=== PATIENT | female | born 1985 | race Hispanic/Latino ===

== ENCOUNTER 2018-08-17 13:48 | Emergency (ER) | payer MEDICAID, OTHER ==
[2018-08-17 13:59] VITALS: BP 146/85
[2018-08-17 14:25] LABS: Bacteria,Urine 1+ /HPF (Negative); Bilirubin,Urine NEG (Negative); Blood,Urine NEG (Negative); Color,Urine Amber (Yellow); Mucus,Urine 3+ /HPF; Urobilinogen,Urine < 2.0 mg/dL (<2.0)
[2018-08-17 14:29] LABS: HCG Qualitative,Urine Positive (Negative)
[2018-08-17] MEDS ORDERED: REGLAN IV ONE (14:31)
[2018-08-17] MEDS ORDERED: NACL 0.9% 1000 ML 1,000 ML IV ONE (14:31)
[2018-08-17 14:39] LABS: Basophils # (Auto) 0.1 K/mm3 (0.0-0.1); Basophils % (Auto) 0.8 % (0.0-1.8); Eosinophils % (Auto) 0.3 % (0.0-4.3); Hematocrit 45.6 % (30.3-42.9); Hemoglobin 15.5 gm/dl (10.1-14.3); Lymphocytes # (Auto) 2.4 K/mm3 (1.2-5.4); Lymphocytes % (Auto) 22.3 % (13.4-35.0); Mean Corpuscular HGB Conc 34 % (30-34); Mean Corpuscular Volume 92 fl (79-97); Monocytes # (Auto) 0.8 K/mm3 (0.0-0.8); Monocytes % (Auto) 7.4 % (0.0-7.3); Platelet Count 271 K/mm3 (140-440); Red Blood Count 4.98 M/mm3 (3.65-5.03); Red Cell Distribution Width 12.8 % (13.2-15.2)
--- NOTE | 2018-08-17 15:04 | Emergency Department Report ---
ED HPI - General Chief complaint: Abdominal Pain Stated complaint: PREG/CRAMPS/SPOTTING Time Seen by Provider: 08/17/18 14:18 Source: patient Mode of arrival: Ambulatory Limitations: No Limitations - History of Present Illness Initial comments: This is a 32-year-old female nontoxic, well nourished in appearance, no acute signs of distress presents to the ED with c/o of vaginal bleeding, nausea vomiting, and pelvic pain x2 days. Patient stated yesterday she noticed some spotting this morning x3 occasions. Patient stated she is but is not certain of how long. Patient denies having an OBGYN follow-up. Patient denies any abdominal pain. Patient denies any vaginal discharge or foul odor. Patient denies any chest pain, shortness of breathe, fever, chills, headache, stiff neck, numbness, tingling. Patient denies any urinary symptoms. Patient stated allergies to PCN with no significant PMH. MD Complaint: vaginal bleeding, other (pelvic pain) -: days(s) Location: pelvis Radiation: none Severity: mild Severity scale (0 -10): 3 Quality: cramping, aching Consistency: constant Improves with: none Worsens with: none Associated symptoms: nausea/vomiting, vaginal bleeding. denies: vaginal discharge, abdominal pain, dysuria, headache, vision changes, malaise, dysparuenia, rash, seizure, shortness of breath, syncope, weakness Vaginal bleeding: light :: Yes Pre- care: none - Related Data Previous Rx's Medication Instructions Recorded Last Taken Type Metoclopramide [Reglan] 10 mg PO Q8H PRN #20 tab 08/17/18 Unknown Rx 21/Iron Fu/Folic Acid 1 each PO DAILY #30 tablet 08/17/18 Unknown Rx [ Complete Caplet] RX: metroNIDAZOLE 0.75%(NF) 1 applicatio TP DAILY 5 Days tube 08/17/18 Unknown Rx [Metrogel 0.75% TOPICAL] Allergies Allergy/AdvReac Type Severity Reaction Status Date / Time Penicillins Allergy Anaphylaxis Verified 08/17/18 13:56 ED Review of Systems ROS: Stated complaint: PREG/CRAMPS/SPOTTING Other details as noted in HPI Constitutional: denies: chills, fever Eyes: denies: eye pain, eye discharge, vision change ENT: denies: ear pain, throat pain Respiratory: denies: cough, shortness of breath, wheezing Cardiovascular: denies: chest pain, palpitations Endocrine: no symptoms reported Gastrointestinal: nausea, vomiting, other (pelvic pain). denies: abdominal pain, diarrhea Genitourinary: abnormal menses. denies: urgency, dysuria, discharge Musculoskeletal: denies: back pain, joint swelling, arthralgia Skin: denies: rash, lesions Neurological: denies: headache, weakness, paresthesias Psychiatric: denies: anxiety, depression Hematological/Lymphatic: denies: easy bleeding, easy bruising ED Past Medical Hx - Past Medical History Previous Medical History?: No - Surgical History Past Surgical History?: Yes Additional Surgical History: urethra stretching. nasal surgery - Social History Smoking Status: Never Smoker Substance Use Type: None - Medications Home Medications: Home Medications Medication Instructions Recorded Confirmed Last Taken Type Metoclopramide [Reglan] 10 mg PO Q8H PRN #20 tab 08/17/18 Unknown Rx 21/Iron Fu/Folic Acid 1 each PO DAILY #30 tablet 08/17/18 Unknown Rx [ Complete Caplet] RX: metroNIDAZOLE 0.75%(NF) 1 applicatio TP DAILY 5 Days tube 08/17/18 Unknown Rx [Metrogel 0.75% TOPICAL] ED Physical Exam - General Limitations: No Limitations General appearance: alert, in no apparent distress - Head Head exam: Present: atraumatic, normocephalic - Eye Eye exam: Present: normal appearance - Neck Neck exam: Present: normal inspection, full ROM - Respiratory Respiratory exam: Present: normal lung sounds bilaterally. Absent: respiratory distress, wheezes, rales, rhonchi, stridor, chest wall tenderness, accessory muscle use, decreased breath sounds, prolonged expiratory - Cardiovascular Cardiovascular Exam: Present: regular rate, normal rhythm, normal heart sounds. Absent: systolic murmur, diastolic murmur, rubs, gallop - GI/Abdominal GI/Abdominal exam: Present: soft, normal bowel sounds. Absent: distended, tenderness, guarding, rebound, rigid, diminished bowel sounds - Expanded GI/Abdominal Exam Expanded GI/Abdominal exam: Absent: psoas sign, Wagoner's sign, Rovsing's sign, tenderness at Mcburney's Point, ascites - Extremities Exam Extremities exam: Present: normal inspection, full ROM - Back Exam Back exam: Present: normal inspection, full ROM - Neurological Exam Neurological exam: Present: alert, oriented X3 - Psychiatric Psychiatric exam: Present: normal affect, normal mood - Skin Skin exam: Present: warm, dry, intact, normal color. Absent: rash ED Course Vital Signs 08/17/18 13:56 Temperature 97.9 F Pulse Rate 99 H Respiratory 18 Rate Blood Pressure 146/85 O2 Sat by Pulse 100 Oximetry - Reevaluation(s) Reevaluation #1: 08/17/18 15:05 Patient is speaking in full sentences with no signs of distress noted. ED Medical Decision Making - Lab Data Result diagrams: 08/17/18 14:28 - Medical Decision Making This is a 32-year-old female presents with threatened miscarriage with nausea vomiting. Patient is stable and was examined by me. Normal abdominal exam. US OB obtained and dictated by the radiologist. Ua obtained. Quantative serum test obtained. Patient notified of the US report with no questions noted by the patient. Patient was instructed f/u with [facility] in 3-5 days. RH factor positive. Labs within normal limits. Patient was given strict precautions and education on ectopic . At time of discharge, the patient does not seem toxic or ill in appearance. No acute signs of distress noted. Patient agrees to discharge treatment plan of care. No further questions noted by the patient. Critical care attestation.: If time is entered above; I have spent that time in minutes in the direct care of this critically ill patient, excluding procedure time. ED Disposition Clinical Impression: Bacterial vaginosis, Threatened miscarriage Nausea & vomiting Qualifiers: Vomiting type: unspecified Vomiting Intractability: non-intractable Qualified Code(s): R11.2 - Nausea with vomiting, unspecified Disposition: DC-01 TO HOME OR SELFCARE Is pt being admited?: No Does the pt Need Aspirin: No Condition: Stable Instructions: Ectopic (ED), (ED), Bacterial Vaginosis (ED) Additional Instructions: Follow-up with a OBGYN doctor in 3-5 days or if symptoms worsen and continue return to emergency room as soon as possible. Prescriptions: Metoclopramide [Reglan] 10 mg PO Q8H PRN #20 tab PRN Reason: Nausea RX: metroNIDAZOLE 0.75%(NF) [Metrogel 0.75% TOPICAL] 1 applicatio TP DAILY 5 Days tube 21/Iron Fu/Folic Acid [ Complete Caplet] 1 each PO DAILY #30 tablet Referrals: PRIMARY CAREMD [Primary Care Provider] - 3-5 Days MARKIE CASTRO MD [Staff Physician] - 3-5 Days [facility] [Provider Group] - 3-5 Days Forms: Work/School Release Form(ED)
--- NOTE | 2018-08-17 17:27 | Ultrasound Report ---
FINAL REPORT EXAM: US OB TRANSVAGINAL HISTORY: pelvic pain and vaginal bleeding TECHNIQUE: Grayscale and color doppler ultrasound imaging of the pelvis was performed transabdominal ly and transvaginally. PRIORS: None. FINDINGS: Uterus: The uterus is homogeneous in echogenicity without focal mass. The uterus measures 8.1 x 4.5 x 5.5 centimeters. Intrauterine gestational sac is seen within mean sac diameter of 4.5 millimeters. N o embryonic pole or yolk sac was seen. Estimated gestational age is 5 weeks and 2 days with an BARRY of 04/17/2018. Ovaries: 1.9 centimeter right corpus luteal cyst is seen. No left ovarian cysts. Normal flow is seen to the ovaries. The right ovary measures 2.8 x 2.9 x 3.0 centimeters. The left ovary measures 2.4 x 2 .2 x 2.3 centimeters. Free fluid: None. IMPRESSION: Intrauterine gestational sac without yolk sac or embryonic pole identified at this time likely repres enting a very early intrauterine . Recommend followup pelvic ultrasound and beta HCG.
--- NOTE | 2018-08-17 17:27 | Ultrasound Report ---
FINAL REPORT EXAM: US OB <= 14 WEEKS FETUS HISTORY: pelvic pain and vaginal bleeding TECHNIQUE: Grayscale and color doppler ultrasound imaging of the pelvis was performed transabdomina lly and transvaginally. PRIORS: None. FINDINGS: Uterus: The uterus is homogeneous in echogenicity without focal mass. The uterus measures 8.1 x 4.5 x 5.5 centimeters. Intrauterine gestational sac is seen within mean sac diameter of 4.5 millimeters. N o embryonic pole or yolk sac was seen. Estimated gestational age is 5 weeks and 2 days with an BARRY of 04/17/2018. Ovaries: 1.9 centimeter right corpus luteal cyst is seen. No left ovarian cysts. Normal flow is seen to the ovaries. The right ovary measures 2.8 x 2.9 x 3.0 centimeters. The left ovary measures 2.4 x 2 .2 x 2.3 centimeters. Free fluid: None. IMPRESSION: Intrauterine gestational sac without yolk sac or embryonic pole identified at this time likely repres enting a very early intrauterine . Recommend followup pelvic ultrasound and beta HCG.
== END 2018-08-17 18:10 | disposition home or self-care (01) ==
LOC: ED 13:48
DX: O20.0 Threatened abortion (principal); O23.591 Infection of other part of genital tract in pregnancy, first trimester; O21.9 Vomiting of pregnancy, unspecified; Z88.0 Allergy status to penicillin; Z3A.01 Less than 8 weeks gestation of pregnancy
CPT/HCPCS: 36415; 76801; 76817; 81001; 81025; 84702; 85025; 86850; 86900; 86901; 87210; 87591; 96361; 96374; 99284; J2765; J7030

== ENCOUNTER 2019-03-01 19:29 | Outpatient (CLI) | payer MEDICAID ==
[2019-03-01 19:56] VITALS: BP 114/74
[2019-03-01] MEDS ORDERED: LACTATED RINGERS 1,000 ML IV ONE (20:19)
[2019-03-01 22:04] LABS: Bilirubin,Urine NEG (Negative); Blood,Urine NEG (Negative); Color,Urine Amber (Yellow); Mucus,Urine 3+ /HPF; Urobilinogen,Urine < 2.0 mg/dL (<2.0)
== END 2019-03-01 22:14 | disposition home or self-care (01) ==
LOC: TRG 19:29
PROVIDERS: ATTEND Obstetrics & Gynecology
DX: O62.9 Abnormality of forces of labor, unspecified (principal); Z3A.33 33 weeks gestation of pregnancy
CPT/HCPCS: 81001; 87086; 96360; J7120

== ENCOUNTER 2019-04-16 19:23 | Inpatient (IN) | payer MEDICAID ==
[2019-04-16] MEDS ORDERED: XYLOCAINE 2% INFILTRATI ONE (22:52)
[2019-04-16] MEDS ORDERED: BRETHINE SUB-Q PRN (22:52)
[2019-04-16] MEDS ORDERED: MINERAL OIL PO PRN (22:52)
[2019-04-16] MEDS ORDERED: BRETHINE IVP PRN (22:52)
[2019-04-16] MEDS ORDERED: CERVIDIL VG ONE (22:52)
[2019-04-16] MEDS ORDERED: PITOCin/NS 20 UNIT/1000ML DRIP 20 UNITS/1,000 ML BAG IV SCH (23:00)
[2019-04-16] MEDS: LACTATED RINGERS 1,000 ML IV SCH (23:10)
[2019-04-16 23:16] LABS: Hemoglobin 11.4 gm/dl (10.1-14.3); Mean Corpuscular HGB Conc 34 % (30-34); Mean Corpuscular Volume 90 fl (79-97); Platelet Count 198 K/mm3 (140-440); Red Blood Count 3.78 M/mm3 (3.65-5.03); Red Cell Distribution Width 13.7 % (13.2-15.2)
[2019-04-17] MEDS: STADOL IV PRN ×2 (00:09→03:52)
--- NOTE | 2019-04-17 03:29 | History and Physical Report ---
History of Present Illness Date of examination: 04/17/19 Date of admission: 04/16/19 19:23 Chief complaint: Induction of Labor History of present illness: 33yo G 3 P 1 0 1 1 @ 41 weeks 1 day here for scheduled IOL. She was seen at the office yesterday, c/o decreased FM and was sent for IOL. She is a [facility] [employer] patient who initiated care at 38 weeks gestation. care transferred from [facility] where she had limited care beginning in the second trimester. Her course is significant for abnormal pap test (ASCUS/+HR HPV; s/p COLPO), and +HSV 1 (on suppressive therapy). LABS: O pos, Antibody Screen neg, Pap Smear ASCUS/+HPV, Rubella NI, VDRL NR, HBsAg neg, HIV neg, Fasting glucose/Fructosamine/HA1c wnl, GC/CT/Trich neg, GBS neg. Past History Past Medical History: no pertinent history Past Surgical History: other (nose) PATIENT CARE NURSING ASSISTANT History: abnormal PAP smear (ASCUS, +HR HPV), herpes Family/Genetic History: diabetes, hypertension, cancer (breast, prostate) Social history: , lives with family, full code. denies: smoking, alcohol abuse, prescription drug abuse, IV drug use - Obstetrical History Expected Date of Delivery: 04/09/19 Actual Gestation: 41 Week(s) 1 Day(s) : 3 Para: 1 Hx # Term Pregnancies: 1 Number of Pregnancies: 0 Spontaneous Abortions: 0 Induced : 1 Number of Living Children: 1 #1 Infant Gender: Female year: 2008 (04/01/2018) Birthweight: 2.977 kg (6 lbs 9 oz) Method of Delivery: Vaginal Gestational age at delivery: 40 Complications: none Medications and Allergies Allergies Allergy/AdvReac Type Severity Reaction Status Date / Time Penicillins Allergy Severe Anaphylaxis Verified 04/16/19 21:47 Home Medications Medication Instructions Recorded Confirmed Last Taken Type Metoclopramide [Reglan] 10 mg PO Q8H PRN #20 tab 08/17/18 04/16/19 Unknown Rx 21/Iron Fu/Folic Acid 1 each PO DAILY #30 tablet 08/17/18 04/16/19 04/16/19 Rx [ Complete Caplet] 0900 metroNIDAZOLE 0.75%(NF) [Metrogel 1 applicatio TP DAILY 5 Days tube 08/17/18 04/16/19 Unknown Rx 0.75% TOPICAL] Active Meds: Active Medications Butorphanol Tartrate (Stadol) 2 mg IV Q2H PRN PRN Reason: Pain , Severe (7-10) Last Admin: 04/17/19 00:09 Dose: 2 mg Documented by: Ephedrine Sulfate (Ephedrine Sulfate) 10 mg IV Q2M PRN PRN Reason: Hypotension Fentanyl (Sublimaze) 100 mcg IV Q2H PRN PRN Reason: Labor Pain Oxytocin/Sodium Chloride (Pitocin/Ns 20 Unit/1000ml Drip) 20 units in 1,000 mls @ 125 mls/hr IV DIRECT ANGELITO Lactated Ringer's (Lactated Ringers) 1,000 mls @ 125 mls/hr IV DIRECT ANGELITO Last Admin: 04/16/19 23:10 Dose: 125 mls/hr Documented by: Mineral Oil (Mineral Oil) 30 ml PO QHS PRN PRN Reason: Constipation Terbutaline Sulfate (Brethine) 0.25 mg SUB-Q ONCE PRN PRN Reason: Hyperstimulation/Hypertonicity Terbutaline Sulfate (Brethine) 0.25 mg IVP ONCE PRN PRN Reason: Hyperstimulation/Hypertonicity Review of Systems All systems: negative - Vital Signs Vital signs: Vital Signs Pulse BP 90 122/73 04/16/19 21:43 04/16/19 21:43 Temp Pulse Resp BP Pulse Ox 77 116/63 04/17/19 01:33 04/17/19 01:33 - Physical Exam Cardiovascular: Regular rate Lungs: Positive: Clear to auscultation, Normal air movement Abdomen: Positive: normal appearance, soft Genitourinary (Female): Positive: normal external genitalia, normal perenium Vulva: both: normal Vagina: Positive: normal moisture Anus/Rectum: Positive: normal perianal skin Extremities: Positive: edema (trace) - Obstetrical FHR: auscultation normal, category 1 FHR comments: baseline 135, moderate variability, +accels, no decels Uterine Contraction Monitor Mode: External Cervical Dilatation: 1 Cervical Effacement Percentage: 60 station: -3 Uterine Contraction Pattern: Irregular Results Result Diagrams: 04/16/19 21:15 Abnormal lab results 04/16/19 Range/Units 21:15 WBC 12.6 H (4.5-11.0) K/mm3 All other labs normal. Assessment and Plan - Patient Problems (1) 41 weeks gestation of Current Visit: Yes Status: Acute (2) Encounter for induction of labor Current Visit: Yes Status: Acute Plan to address problem: Admit to L&D with routine labor orders Cervidil for cervical ripening Anticipate vaginal delivery (3) Post-dates Current Visit: Yes Status: Acute Qualifiers: Post-term type: 40-42 weeks gestation Qualified Code(s): O48.0 - Post-term
[2019-04-17] MEDS: SUBLIMAZE IV PRN ×2 (10:19→23:20)
--- NOTE | 2019-04-17 10:51 | Progress Note ---
Assessment and Plan - Patient Problems (1) Encounter for induction of labor Current Visit: Yes Status: Acute Plan to address problem: Continue current orders Remove cervidil at noon, followed by cervical exam May eat light lunch, then continue with IOL Anticipate Subjective - Subjective Date of service: 04/17/19 Principal diagnosis: IOL secondary to post-dates Interval history: See admission H & P Patient reports: movement normal, contractions, no loss of fluid, no vaginal bleeding Objective - Vital Signs Vital Signs: Vital Signs - 12hr 04/17/19 04/17/19 04/17/19 01:33 03:52 04:52 Temperature Pulse Rate 77 Respiratory 16 16 Rate Blood Pressure 116/63 Blood Pressure [Left] 04/17/19 04/17/19 04/17/19 05:59 07:10 10:14 Temperature 97.7 F 98.8 F Pulse Rate 80 77 Respiratory Rate Blood Pressure 109/66 125/72 Blood Pressure 109/66 [Left] - Exam Breasts: deferred Cardiovascular: Regular rate Lungs: Normal air movement Abdomen: Present: other (gravid) Uterus: Present: other (S=D) FHR: category 1 Uterine Contraction Monitor Mode: External Uterine Contraction Frequency (min): 3-4 Uterine Contraction Pattern: Irregular Uterine Tone Measurement Phase: Resting Uterine Contraction Intensity: Mild Extremities: normal Deep Tendon Reflex Grade: Normal +2 - Labs Labs: Abnormal Labs 04/16/19 21:15 WBC 12.6 H Laboratory Results - last 24 hr 04/16/19 04/16/19 21:15 21:15 WBC 12.6 H RBC 3.78 Hgb 11.4 Hct 34.0 MCV 90 MCH 30 MCHC 34 RDW 13.7 Plt Count 198 Blood Type O POSITIVE Antibody Screen Negative
--- NOTE | 2019-04-17 14:15 | Event Note ---
Date: 04/17/19 Cervidill was removed around 1315, cervical exam by RN. Pt had small meal, will shower. Order given for second cervidil x 12 hrs as tolerated.
[2019-04-17] MEDS ORDERED: CERVIDIL VG ONE (15:15)
[2019-04-18] MEDS: STADOL IV PRN ×2 (05:18→11:59)
[2019-04-18] MEDS ORDERED: PITOCin/NS 30 UNIT/500ML 30,000 MILLIUNITS/500 ML BAG IV ONE (06:14)
[2019-04-18] MEDS: LACTATED RINGERS 1,000 ML IV SCH ×2 (06:22→14:14)
[2019-04-18] MEDS: SUBLIMAZE IV PRN (09:33)
--- NOTE | 2019-04-18 10:08 | Progress Note ---
Assessment and Plan A: IUP @ 41 2/7 Weeks Category I Tracing GBS Negative P: Continue Pitocin Augmentation Subjective - Subjective Date of service: 04/18/19 Principal diagnosis: IOL secondary to post-dates Patient reports: movement normal, contractions, no loss of fluid, no vaginal bleeding Objective - Vital Signs Vital Signs: Vital Signs - 12hr 04/17/19 04/17/19 04/18/19 23:20 23:59 04:55 Pulse Rate 80 76 Respiratory 17 Rate Blood Pressure 124/78 112/76 04/18/19 04/18/19 04/18/19 05:18 07:34 09:20 Pulse Rate 69 81 Respiratory 16 Rate Blood Pressure 107/67 128/85 04/18/19 09:42 Pulse Rate 83 Respiratory Rate Blood Pressure 115/66 - Exam Breasts: normal Cardiovascular: Regular rate Lungs: Clear to auscultation, Normal air movement Abdomen: Present: normal appearance, soft, normal bowel sounds Uterus: Present: normal, firm, fundal height above umbilicus FHR: category 1 Uterine Contraction Monitor Mode: External Cervical Dilatation: 3 Cervical Effacement Percentage: 60 station: -3 Uterine Contraction Pattern: Irregular Uterine Tone Measurement Phase: Resting Uterine Contraction Intensity: Moderate Extremities: normal - Labs Labs: Abnormal Labs 04/16/19 21:15 WBC 12.6 H Laboratory Results - last 24 hr 04/16/19 21:15 RPR Nonreactive
[2019-04-18] MEDS ORDERED: NARCAN 2 MG/2 ML IV PRN (13:34)
--- NOTE | 2019-04-18 13:34 | Anesthesia Consultation ---
Anesthesia Consult and Med Hx Date of service: 04/18/19 - Airway Anesthetic Teeth Evaluation: Good ROM Head & Neck: Adequate Mental/Hyoid Distance: Adequate Mallampati Class: Class II Intubation Access Assessment: Good - Pulmonary Exam CTA: Yes - Cardiac Exam Cardiac Exam: RRR - Pre-Operative Health Status ASA Pre-Surgery Classification: ASA2 Proposed Anesthetic Plan: Epidural - Pulmonary Hx Asthma: No COPD: No Hx Pneumonia: No - Cardiovascular System Hx Hypertension: No - Central Nervous System Hx Seizures: No Hx Psychiatric Problems: No - Endocrine Hx Renal Disease: No Hx End Stage Renal Disease: No Hx Hypothyroidism: No Hx Hyperthyroidism: No - Hematic Hx Anemia: Yes Hx Sickle Cell Disease: No - Other Systems Hx Alcohol Use: No
[2019-04-18] MEDS ORDERED: MARCAINE 0.25% INFILTRATI ONE ×2 (13:38→16:48)
[2019-04-18] MEDS ORDERED: fentaNYL-BUPIV 2 MCG/ML-0.125% 200 MCG/100 ML BAG EPIDURAL SCH (14:00)
[2019-04-18] MEDS ORDERED: TYLENOL PO ONE (19:37)
[2019-04-18] MEDS ORDERED: PERCOCET 5/325 PO PRN (19:38)
[2019-04-18] MEDS ORDERED: DULCOLAX PR PRN (19:38)
[2019-04-18] MEDS ORDERED: TUCKS PAD TP PRN (19:38)
[2019-04-18] MEDS ORDERED: NORCO 5/325 PO PRN (19:38)
[2019-04-18] MEDS ORDERED: BENADRYL PO PRN (19:38)
--- NOTE | 2019-04-18 19:54 | Procedure Note ---
OB Delivery Note - Delivery Date of Delivery: 04/18/19 (190) Surgeon: CARIN ARELLANO Estimated blood loss: 200cc - Vaginal Delivery presentation: vertex Delivery position: OA Delivery induction: cervidil Delivery augmentation: pitocin Delivery monitor: external FHT, external uterine Route of delivery: Delivery placenta: spontaneous Delivery cord: 3 umbilical vessels Episiotomy: none Delivery laceration: none Anesthesia: epidural Delivery comments: of a live 8'13 female infant over a intact perineum under epidural anesthesia with Apgars at 7 and 8 at 1909 on 04/18/2019. Tight delivery of shoulders; Infant delivered with routine maneuvers in Theresa Position. Cord double clamped and cut by LANA Arellano, and placed on warmer. Spontaneous delivery of placenta complete and intact with Mcelroy side presenting @ 1911. Fundus is firm and midline located 5 below the U; Lochia is scant. Cord blood collected; Placenta discarded. - A at 1 minute: 7 at 5 minutes: 8 Infant Gender: Female (8'13)
[2019-04-18] MEDS ORDERED: SODIUM CHLORIDE FLUSH SYRINGE 10 ML IV NR (20:00)
[2019-04-18] MEDS: IBUPROFEN PO SCH (20:17)
[2019-04-19] MEDS: IBUPROFEN PO SCH ×4 (02:07→23:53)
[2019-04-19 08:30] LABS: Hematocrit 31.1 % (30.3-42.9); Hemoglobin 10.6 gm/dl (10.1-14.3)
--- NOTE | 2019-04-19 10:17 | Progress Note ---
Assessment and Plan A: PPD#1 s/p Breast/bottlefeeding Stable P: Routine PP orders Encouraged ambulation Anticipate discharge home in 24-48 hrs Subjective - Subjective Date of service: 04/19/19 Principal diagnosis: PPD#1 s/p Interval history: See H&P and delivery note Patient reports: appetite normal, voiding normally, pain well controlled, flatus, ambulating normally, no bowel movement Tinnie: doing well, nursing well Objective - Vital Signs Latest vital signs: Vital Signs Temp Pulse Resp BP BP Pulse Ox 04/19/19 06:14 18 04/19/19 04:00 98.4 F 63 18 116/62 04/19/19 02:07 18 04/19/19 00:00 98.6 F 72 19 114/78 04/18/19 22:25 98.5 F 83 18 107/68 97 04/18/19 21:39 80 113/69 04/18/19 21:10 116 H 103/67 04/18/19 21:06 88 125/68 04/18/19 21:05 85 98 04/18/19 21:00 105 H 100 04/18/19 20:55 87 99 04/18/19 20:50 100 H 99 04/18/19 20:45 101 H 98 04/18/19 20:40 103 H 99 04/18/19 20:39 103 H 132/84 04/18/19 20:35 103 H 99 04/18/19 20:30 108 H 96 04/18/19 20:25 98 H 98 04/18/19 20:20 95 H 98 04/18/19 20:17 16 04/18/19 20:15 99 H 98 04/18/19 20:10 100 H 127/71 99 04/18/19 20:05 102 H 98 04/18/19 20:00 109 H 98 04/18/19 19:55 106 H 99 04/18/19 19:50 110 H 98 04/18/19 19:48 16 04/18/19 19:44 116 H 98 04/18/19 19:40 118 H 136/72 04/18/19 19:39 115 H 98 04/18/19 19:34 120 H 98 04/18/19 19:29 120 H 99 04/18/19 19:11 127 H 141/68 04/18/19 19:09 141 H 140/70 04/18/19 18:39 85 141/89 04/18/19 18:30 97 H 94 04/18/19 18:27 108 H 99 04/18/19 18:22 96 H 100 04/18/19 18:17 106 H 98 04/18/19 18:12 95 H 100 04/18/19 18:10 89 132/78 04/18/19 18:07 91 H 99 04/18/19 18:02 93 H 98 04/18/19 17:58 70 90 04/18/19 17:57 88 100 04/18/19 17:52 103 H 100 04/18/19 17:47 85 04/18/19 17:31 80 99 04/18/19 17:26 82 99 04/18/19 17:21 85 98 04/18/19 17:16 87 99 04/18/19 17:11 83 99 04/18/19 17:06 84 98 04/18/19 17:01 77 99 04/18/19 16:56 77 98 04/18/19 16:54 74 131/80 04/18/19 16:51 98.6 F 92 H 99 04/18/19 16:43 77 98 04/18/19 16:41 84 127/81 04/18/19 16:38 73 98 04/18/19 16:33 82 98 04/18/19 16:28 86 99 04/18/19 16:19 86 99 04/18/19 16:13 79 100 04/18/19 16:08 90 100 04/18/19 16:03 77 99 04/18/19 16:00 78 130/72 04/18/19 15:58 82 99 04/18/19 15:53 84 99 04/18/19 15:52 79 122/68 04/18/19 15:48 78 99 04/18/19 15:43 91 H 100 04/18/19 15:41 84 110/60 04/18/19 15:38 85 99 04/18/19 15:33 80 100 04/18/19 15:31 88 115/66 04/18/19 15:28 85 100 04/18/19 15:23 82 100 04/18/19 15:20 86 111/70 04/18/19 15:18 89 99 04/18/19 15:13 78 99 04/18/19 15:10 88 113/69 04/18/19 15:08 81 99 04/18/19 15:03 85 99 04/18/19 14:59 82 119/74 04/18/19 14:58 82 98 04/18/19 14:57 89 116/68 04/18/19 14:55 85 131/90 04/18/19 14:53 86 127/89 99 04/18/19 14:51 76 126/84 04/18/19 14:48 84 99 04/18/19 14:43 85 97 04/18/19 14:39 97.8 F 98 04/18/19 14:38 85 98 04/18/19 14:33 97 H 98 04/18/19 14:28 90 98 04/18/19 14:23 101 H 96 04/18/19 14:18 91 H 97 04/18/19 14:13 96 H 97 04/18/19 14:08 100 H 98 04/18/19 14:03 85 97 04/18/19 14:00 100 H 120/80 04/18/19 13:57 78 98 04/18/19 13:52 82 98 04/18/19 13:48 29 L 88 04/18/19 13:47 99 H 96 04/18/19 13:45 92 H 123/80 04/18/19 13:44 86 128/87 04/18/19 13:42 98 H 98 04/18/19 13:00 74 102/59 04/18/19 12:00 97.9 F 83 16 120/73 120/73 04/18/19 11:34 106 H 134/79 04/18/19 10:36 75 105/60 Intake and Output 04/18/19 04/19/19 04/19/19 23:59 07:59 15:59 Intake Total 1718.85 300 Output Total 800 Balance 1718.85 -500 Intake: IV 1718.85 Lactated Ringers 1,000 ml 618.75 @ 125 mls/hr IV DIRECT ANGELITO Rx#:[id number] PITOCin/NS 20 UNIT/1000ML 1000 DRIP 20 units In 1,000 ml @ 125 mls/hr IV DIRECT ANGELITO Rx#:[id number] PITOCin/NS 30 UNIT/500ML 100.1 30,000 milliunits In 500 ml @ 2 MILLIUNITS/MIN 2 mls/hr IV DIRECT ONE Rx#:[id number] Intake, Free Water 300 Output: Urine 800 Void 800 Other: Total, Output Amount 800 Estimated Blood Loss 200 - Exam Breasts: Present: normal, Cardiovascular: Present: Regular rate, Normal S1, Normal S2, No murmurs Lungs: Present: Clear to auscultation, Normal air movement Abdomen: Present: normal appearance, soft, normal bowel sounds. Absent: distention Vulva: both: normal Uterus: Present: firm, fundal height below umbilicus (-1) Extremities: Present: normal Deep Tendon Reflex Grade: Normal +2
--- NOTE | 2019-04-19 10:18 | Discharge Summary ---
Providers - Providers Date of Admission: 04/16/19 19:23 Date of discharge: 04/20/19 Attending physician: SANTA CRUZ MD Primary care physician: SANTA CRUZ MD Hospitalization Reason for admission: induction of labor, IUP at term Delivery: Procedure details: See delivery note Episiotomy: none Laceration: none Other procedures: none complications: none Discharge diagnosis: IUP at term delivered [place] baby: female Condition at discharge: Good Disposition: DC-01 TO HOME OR SELFCARE Plan - Provider Discharge Summary Activity: routine, no sex for 6 weeks, no heavy lifting 4 weeks, no strenuous exercise Diet: routine Instructions: routine Additional instructions: [] Smoking cessation referral if applicable(refer to patient education folder for contact #) [] Refer to [facility]'s [facility] Booklet Call your doctor immediately for: * Fever > 100.5 * Heavy vaginal bleeding ( >1 pad per hour) * Severe persistent headache * Shortness of breath * Reddened, hot, painful area to leg or breast * Drainage or odor from incision. * Keep incision clean and dry at all times and follow doctor's instructions regarding bathing/showering - Follow up plan Follow up: SANTA CRUZ MD [Primary Care Provider] - 6 Weeks
--- NOTE | 2019-04-19 23:44 | Post Anesthesia Evaluation ---
- Post Anesthesia Evaluation Patient Participated: Yes Airway Patent: Yes Stable Respiratory Function: Yes Nausea/Vomiting: No Temp > 96.8F: Yes Pain Manageable: Yes Adequeate Hydration: Yes Anesthesia Complications: No Block Receding Appropriately: Yes Patient on Ventilator: No
[2019-04-20] MEDS: IBUPROFEN PO SCH ×2 (06:00→11:57)
[2019-04-20] MEDS ORDERED: M-M-R II VACCINE SUB-Q ONE (16:13)
[2019-04-20 16:39] VITALS: BP 130/78
== END 2019-04-20 18:15 | disposition home or self-care (01) | DRG 775 ==
LOC: LD 19:23 → OB 04-18 22:23
PROVIDERS: ADMIT Obstetrics & Gynecology; ATTEND Obstetrics & Gynecology
PROC: 10E0XZZ Delivery of Products of Conception, External Approach (ICD-10-PCS; principal; 2019-04-18)
PROC: 3E0P7VZ Introduction of Hormone into Female Reproductive, Via Natural or Artificial Opening (ICD-10-PCS; 2019-04-18)
PROC: 3E0R3BZ Introduction of Anesthetic Agent into Spinal Canal, Percutaneous Approach (ICD-10-PCS; 2019-04-18)
PROC: 00HU33Z Insertion of Infusion Device into Spinal Canal, Percutaneous Approach (ICD-10-PCS; 2019-04-18)
PROC: 3E0234Z Introduction of Serum, Toxoid and Vaccine into Muscle, Percutaneous Approach (ICD-10-PCS; 2019-04-20)
DX: O48.0 Post-term pregnancy (principal); Z3A.41 41 weeks gestation of pregnancy; Z37.0 Single live birth; Z82.49 Family history of ischemic heart disease and other diseases of the circulatory system; Z83.3 Family history of diabetes mellitus; Z80.3 Family history of malignant neoplasm of breast; Z80.42 Family history of malignant neoplasm of prostate; Z88.0 Allergy status to penicillin; Z79.899 Other long term (current) drug therapy; Z23 Encounter for immunization
CPT/HCPCS: 36415; 59200; 85014; 85018; 85027; 86592; 86850; 86900; 86901; 90707; G0378; J0595; J2590; J3010; J7120